=== PATIENT | female | born 1975 | race Caucasian/White ===

== ENCOUNTER 2016-08-31 12:33 | Emergency (ER) ==
[2016-08-31 13:19] LABS: BASO% 0.8 % (0.0-0.8); EOS# 0.15 X1000 (0.0-0.7); EOS% 2.3 % (0.0-10.0); HEMATOCRIT 28.3 % (37.0-47.0); LYMPH# 1.96 X1000 (1.2-3.4); LYMPH% 29.6 % (20.5-51.1); MANUAL DIFF NEEDED? YES; MCH 19.2 PG (27-31); MCHC 28.3 g/dL (33-37); MCV 67.9 FL (81-99); MONO% 10.6 % (1.7-9.3); MPV 8.9 FL (7.4-10.4); NEUT% 56.7 % (42.2-75.2); PLT 468 X1000 (130-400); RBC 4.17 XMIL (4.2-5.4)
[2016-08-31 13:29] LABS: HYPOCHROM 1+; LYMPHS 36 % (21-51); MONO 2 % (1-9)
[2016-08-31 13:38] LABS: INR 0.95; PROTIME 10.1 Seconds (9.2-11.7); PTT 23.5 Seconds (22.0-36.0)
[2016-08-31 14:11] LABS: AGAP 13; ALBUMIN 4.2 g/dL (3.5-5.0); ALKALINE PHOSPHATASE 89 U/L (32-104); BUN 10 mg/dL (8-22); CALCIUM 9.2 mg/dL (8.8-10.2); CHLORIDE 101 mmol/L (98-107); COSMO 273; GOT 27 U/L (10-30); GPT 35 U/L (10-36); POTASSIUM 4.3 mmol/L (3.5-5.1); SODIUM 137 mmol/L (136-145); TCO2 23 mmol/L (25-35); TOTAL BILIRUBIN 0.55 mg/dL (0.20-1.00)
--- NOTE | 2016-08-31 14:48 | PROVIDER DOCUMENTATION ---
HPI-General Adult - General Source: patient - History of Present Illness -Gen Adult Nature of Presenting Problems: patient is a 41 y/o F that presents to the ER from health department due to low H&H. patient reports having some palpitations and dizziness of late but no rectal bleeding or vaginal bleeding. No fever/chills, weight loss. patient has history of anemia in past with transfusion. Location of Pain/Injury: reports: none Pain Radiation: reports: no radiation Quality of Pain: reports: none Severity: reports: mild Onset/Duration: reports: unsure Timing: reports: still present Context/Activities at Onset: reports: none Modifying Factors: improves with: nothing Associated Symptoms: reports: dizziness. denies: back/neck pain, chest pain, fever/chills, genitourinary problems, malaise, muscle aches, shortness of breath , syncope, vomiting Similar Symptoms Previously?: No Recently seen or treated by another doctor?: No <Declan Roberto - Last Filed: 08/31/16 14:54> <Jaiden Ham - Last Filed: 08/31/16 17:06> - General Chief Complaint: Abnormal Lab[s] Stated Complaint: ab. labs Time Seen by Provider: 08/31/16 14:46 Allergies/Adverse Reactions: Patient Allergies Allergy/AdvReac Type Severity Reaction Status Date / Time promethazine HCl * Allergy Intermediate NAUSEA/VOMI Verified 08/31/16 12:43 [From Phenergan] TING tetracycline [Tetracycline] Allergy Intermediate HIVES Verified 08/31/16 12:43 Corticosteroids Allergy Unknown Unknown Verified 08/31/16 12:43 (Glucocorticoids) aspirin AdvReac Intermediate Unknown Verified 08/31/16 12:43 Home Medications: Home Medication List Medication Instructions Recorded Confirmed Last Taken Type No Home Medications 08/31/16 08/31/16 Unknown History Review of Systems - Adult - REVIEW OF SYSTEMS - ADULT Constitutional: denies: chills, fever, fatique, night sweats, weight gain, weight loss Eyes: denies: decreased vision, blurred vision, double vision Ears, Nose, Mouth & Throat: denies: ear pain, sinus problem, throat pain, throat swelling Cardiovascular: reports: chest pain, palpitations. denies: orthopnea, syncope Respiratory: denies: cough, shortness of breath, wheezing Gastrointestinal: denies: abdominal pain, hematemesis, diarrhea, nausea, rectal bleeding, vomiting Genitourinary: denies: dysuria, frequency, hematuria, urgency Musculoskeletal: denies: back pain, joint pain, muscle aches, neck pain Integumentary: denies: hives, itching, skin sores/ulcer Neurological: reports: dizziness/vertigo. denies: headache/migraines, seizure Psychiatric: reports: no symptoms reported Endocrine: reports: no symptoms reported Hematologic/Lymphatic: reports: no symptoms reported Allergic/Immunologic: reports: no symptoms reported All Other Systems: Reviewed and Negative <Declan Roberto - Last Filed: 08/31/16 14:54> Past History - Adult - PAST MEDICAL HISTORY-ADULT Review of Records: reports: Old Records Reviewed, Nursing Assessment Review, Medications Reviewed Gastrointestinal: reports: ulcer Neurological: reports: other (Kiaris) Endocrine/Immune: reports: anemia, thyroid disorder (hypo) - PRIOR SURGERIES/PROCEDURES Surgical/Procedure History: reports: gastric bypass - IMMUNIZATION STATUS Childhood Immunizations: See Nurse Assessment Flu Vaccine: See Nurse Assessment - FAMILY HISTORY Family History: reviewed, not pertinent - SOCIAL HISTORY Smoking: non-smoker Living Situation: family <Declan Roberto - Last Filed: 08/31/16 14:54> Physical Exam-General - PHYSICAL EXAM-ADULT Initial Vital Signs Reviewed: Yes - CONSTITUTIONAL General Appearance: alert, no apparent distress - EYES Eyes: PERRL/EOMI, pink conjunctivae - HEAD, EARS, NOSE, MOUTH & THROAT HENMT: normocephalic/atraumatic, moist mucous membranes, normal ENT inspection - NECK Neck: full range of motion, normal inspection. negative: lymphadenopathy - RESPIRATORY Respiratory: lungs clear, normal breath sounds, no respiratory distress, no accessory muscle use - CARDIOVASCULAR Cardiovascular: regular rate, rhythm, no edema, no murmur - GASTROINTESTINAL (ABDOMEN) Abdominal Exam: normal bowel sounds, non tender, soft, no organomegaly, no pulsatile mass - GENITOURINARY Rectal Exam: normal exam, normal rectal tone Hemoccult Exam: heme negative stool - MUSCULOSKELETAL Back Exam: no CVA tenderness, no vertebral tenderness Extremity: normal range of motion, normal inspection, no pedal edema, no calf tenderness - SKIN Integumentary: normal color, normal turgor, warm/dry. negative: pallor - NEUROLOGIC Neurologic: grossly normal, no motor/sensory deficits - PSYCHIATRIC Psych/Mental Status: normal mood/affect, normal thought content, normal thought process, oriented x 3 <Declan Roberto - Last Filed: 08/31/16 14:54> Progress - PLAN OF CARE/RESULTS Progress/Plan/Lab Results: plan of care-labs, type and screen, transfuse - EKG 1 Time of EKG reading by physician:: 14:56 EKG Read and Signed by:: Jaiden Ham EKG Interpretation (*Must complete 3 of following elements*): Normal Rate: 68 Rhythm: NSR [place]: normal QRS: normal [place] Interval: normal ST Wave: normal <Declan Roberto - Last Filed: 08/31/16 14:54> - PLAN OF CARE/RESULTS Progress/Plan/Lab Results: Laboratory Tests 08/31/16 08/31/16 08/31/16 12:44 12:44 12:44 WBC 6.63 RBC 4.17 L Hgb 8.0 L Hct 28.3 L MCV 67.9 L MCH 19.2 L MCHC 28.3 L RDW Std Deviation 18.7 H Plt Count 468 H MPV 8.9 Immature Gran % (Auto) 0.0 Neut % (Auto) 56.7 Lymph % (Auto) 29.6 Day % (Auto) 10.6 H Eos % (Auto) 2.3 Baso % (Auto) 0.8 Immature Gran # (Auto) 0.00 Neut # (Auto) 3.77 Lymph # (Auto) 1.96 Day # (Auto) 0.70 H Eos # (Auto) 0.15 Baso # (Auto) 0.05 Segmented Neutrophils 62 Lymphocytes 36 Monocytes 2 Hypochromia 1+ Microcytosis 1+ PT 10.1 INR 0.95 PTT (Actin FS) 23.5 Sodium 137 Potassium 4.3 Chloride 101 Carbon Dioxide 23 L Anion Gap 13 BUN 10 Creatinine 0.6 Estimated GFR/1.73 m2 > 60 BUN/Creatinine Ratio 17 Glucose 94 Calculated Osmolality 273 Calcium 9.2 Total Bilirubin 0.55 AST 27 ALT 35 Alkaline Phosphatase 89 Troponin T Total Protein 7.0 Albumin 4.2 Globulin 2.8 Albumin/Globulin Ratio 1.5 Blood Type Antibody Screen Crossmatch 08/31/16 08/31/16 12:44 12:44 WBC RBC Hgb Hct MCV MCH MCHC RDW Std Deviation Plt Count MPV Immature Gran % (Auto) Neut % (Auto) Lymph % (Auto) Day % (Auto) Eos % (Auto) Baso % (Auto) Immature Gran # (Auto) Neut # (Auto) Lymph # (Auto) Day # (Auto) Eos # (Auto) Baso # (Auto) Segmented Neutrophils Lymphocytes Monocytes Hypochromia Microcytosis PT INR PTT (Actin FS) Sodium Potassium Chloride Carbon Dioxide Anion Gap BUN Creatinine Estimated GFR/1.73 m2 BUN/Creatinine Ratio Glucose Calculated Osmolality Calcium Total Bilirubin AST ALT Alkaline Phosphatase Troponin T < 0.010 Total Protein Albumin Globulin Albumin/Globulin Ratio Blood Type O POSITIVE Antibody Screen NEGATIVE Crossmatch See Detail Orders Category Date Time Status Transfuse .Give-Transfuse Care 08/31/16 15:04 Active CHEST-PORTABLE [RAD] Stat Exams 08/31/16 15:42 Taken CBC WITH DIFF [HEME] Stat Lab 08/31/16 12:44 Completed COMPREHENSIVE METABOLIC PANEL [CHEM] Stat Lab 08/31/16 12:44 Completed H&H [HGB AND HCT] [HEME] Stat Lab 08/31/16 17:01 Uncollected LRPC (RED CELLS) [BBK] Stat Lab 08/31/16 12:44 Completed OCCULT BLOOD SCREENING [STOOL] Stat Lab 08/31/16 14:51 Completed PROTIME WITH INR [COAG] Stat Lab 08/31/16 12:44 Completed PTT [COAG] Stat Lab 08/31/16 12:44 Completed TROPONIN T Stat Lab 08/31/16 12:44 Completed TYPE & SCREEN [BBK] Stat Lab 08/31/16 12:44 Completed 0.9% Sodium Chloride Inj [Ns] 500 ml Med 08/31/16 16:30 Discontinued .ROUTE As Directed EKG [EKG] Stat Ther 08/31/16 14:50 Ordered Vital Signs Temp Pulse Resp BP Pulse Ox 08/31/16 16:47 98.9 F 72 18 106/78 100 08/31/16 16:02 71 20 111/78 100 08/31/16 14:58 98.7 F 83 18 123/56 100 08/31/16 12:38 98.5 F 95 H 16 128/70 100 promethazine HCl * [From Phenergan] Allergy (Intermediate, Verified 08/31/16 12: 43) NAUSEA/VOMITING tetracycline [Tetracycline] Allergy (Intermediate, Verified 08/31/16 12:43) HIVES Corticosteroids (Glucocorticoids) Allergy (Unknown, Verified 08/31/16 12:43) Unknown STEROIDS hallucinations aspirin Adverse Reaction (Intermediate, Verified 08/31/16 12:43) Unknown bleeding ulcer No Home Medications 08/31/16 I&O 08/30/16 08/31/16 09/01/16 07:59 07:59 07:59 Intake Total 0 Balance 0 Laboratory 08/31/16 08/31/16 08/31/16 12:44 12:44 12:44 WBC RBC Hgb Hct MCV MCH MCHC RDW Std Deviation Plt Count MPV Immature Gran % (Auto) Neut % (Auto) Lymph % (Auto) Day % (Auto) Eos % (Auto) Baso % (Auto) Immature Gran # (Auto) Neut # (Auto) Lymph # (Auto) Day # (Auto) Eos # (Auto) Baso # (Auto) Segmented Neutrophils Lymphocytes Monocytes Hypochromia Microcytosis PT 10.1 INR 0.95 PTT (Actin FS) 23.5 Sodium Potassium Chloride Carbon Dioxide Anion Gap BUN Creatinine Estimated GFR/1.73 m2 BUN/Creatinine Ratio Glucose Calculated Osmolality Calcium Total Bilirubin AST ALT Alkaline Phosphatase Troponin T < 0.010 Total Protein Albumin Globulin Albumin/Globulin Ratio Blood Type O POSITIVE Antibody Screen NEGATIVE Crossmatch See Detail 08/31/16 08/31/16 12:44 12:44 WBC 6.63 RBC 4.17 L Hgb 8.0 L Hct 28.3 L MCV 67.9 L MCH 19.2 L MCHC 28.3 L RDW Std Deviation 18.7 H Plt Count 468 H MPV 8.9 Immature Gran % (Auto) 0.0 Neut % (Auto) 56.7 Lymph % (Auto) 29.6 Day % (Auto) 10.6 H Eos % (Auto) 2.3 Baso % (Auto) 0.8 Immature Gran # (Auto) 0.00 Neut # (Auto) 3.77 Lymph # (Auto) 1.96 Day # (Auto) 0.70 H Eos # (Auto) 0.15 Baso # (Auto) 0.05 Segmented Neutrophils 62 Lymphocytes 36 Monocytes 2 Hypochromia 1+ Microcytosis 1+ PT INR PTT (Actin FS) Sodium 137 Potassium 4.3 Chloride 101 Carbon Dioxide 23 L Anion Gap 13 BUN 10 Creatinine 0.6 Estimated GFR/1.73 m2 > 60 BUN/Creatinine Ratio 17 Glucose 94 Calculated Osmolality 273 Calcium 9.2 Total Bilirubin 0.55 AST 27 ALT 35 Alkaline Phosphatase 89 Troponin T Total Protein 7.0 Albumin 4.2 Globulin 2.8 Albumin/Globulin Ratio 1.5 Blood Type Antibody Screen Crossmatch - XRAY 1 XRAY Study: Chest Impression: Normal, See EMR Report <Jaiden Ham - Last Filed: 08/31/16 17:06> Departure <Declan Roberto - Last Filed: 08/31/16 14:54> - Departure Time of Disposition Order: 17:02 Certified Medical Emergency: Emergent - Critical Care Note Comments: A 41 y/F with PMH Of PUD and gastric surgery many years ago was sent in for low hemoglobin, complained of fatigue Hb was 8 borderline for transfusion, as pt is getting fatigued and has no appt in next few days especially over weekend will transfuse 1 unit and strict follow up with PCP and needs to see GI for further evalaution, discussed red flags <Jaiden Ham - Last Filed: 08/31/16 17:06> - Departure DIAGNOSIS: Anemia Qualifiers: Anemia type: unspecified type Qualified Code(s): D64.9 - Anemia, unspecified Disposition: HOME 01 Condition: Good Attestation - Scribe Verification/Attestation Scribe:: Declan Roberto Acting as Scribe for:: Jaiden Ham Scribe documention review:: This chart was documented by a scribe and accurately reflects the service the provider performed and the decisions made by the provider. <Declan Roberto - Last Filed: 08/31/16 14:54> Physician Attestation - Physician Attestation I, the provider, attest to the following statement:: Jaiden Ham Physician documentation Attestation:: This documentation recorded by the scribe accurately reflects the service I personally performed and the decisions made by me. <Declan Roberto - Last Filed: 08/31/16 14:54>
[2016-08-31] MEDS ORDERED: NS 500 ML ONE (16:30)
--- NOTE | 2016-08-31 17:12 | Diag Imaging Result Document ---
PROCEDURE NAME: CHEST-PORTABLE - 08/31/2016 AP PORTABLE CHEST AT 1600 HOURS: FINDINGS: There is no evidence of acute cardiac or pulmonary disease. Compared to 08/31/2012, considering differences in projection and inspiration, there has been no significant change. IMPRESSION: No acute disease.
[2016-08-31 18:00] VITALS: BP 111/68
[2016-08-31 18:08] LABS: HEMATOCRIT 28.4 % (37.0-47.0); HEMOGLOBIN 8.2 g/dL (12.0-16.0)
--- NOTE | 2016-09-01 05:56 | EKG Report ---
Test Performed on : 08/31/2016 2:56:59 PM Test Reason : low Hb Blood Pressure : / mmHG Vent. Rate : 068 BPM Atrial Rate : 068 BPM P-R Int : 138 ms QRS Dur : 084 ms QT Int : 388 ms P-R-T Axes : 040 042 056 degrees QTc Int : 412 ms Normal sinus rhythm. Normal ECG No previous ECGs available Unconfirmed Result
== END 2016-08-31 18:25 | disposition home or self-care (01) ==
LOC: ED 12:33
DX: D64.9 Anemia, unspecified (principal); R00.2 Palpitations; R42 Dizziness and giddiness; R79.89 Other specified abnormal findings of blood chemistry; R53.83 Other fatigue; Z98.84 Bariatric surgery status
CPT/HCPCS: 71010; 80053; 82270; 84484; 85014; 85018; 85025; 85610; 85730; 86850; 86900; 86901; 86920; 93005; J7040; P9016

== ENCOUNTER 2016-09-02 14:07 | Emergency (ER) ==
--- NOTE | 2016-09-02 14:32 | PROVIDER DOCUMENTATION ---
HPI-Abdominal Pain/GI Problem - General Chief Complaint: Back Pain Stated Complaint: BACK PAIN Time Seen by Provider: 09/02/16 14:17 Source: patient Allergies/Adverse Reactions: Patient Allergies Allergy/AdvReac Type Severity Reaction Status Date / Time promethazine HCl * Allergy Intermediate NAUSEA/VOMI Verified 09/02/16 14:18 [From Phenergan] TING tetracycline [Tetracycline] Allergy Intermediate HIVES Verified 09/02/16 14:18 Corticosteroids Allergy Unknown Unknown Verified 09/02/16 14:18 (Glucocorticoids) aspirin AdvReac Intermediate Unknown Verified 09/02/16 14:18 Home Medications: Home Medication List Medication Instructions Recorded Confirmed Last Taken Type Bisacodyl [Dulcolax] 10 mg TX QHS #20 supp 09/02/16 Unknown Rx Cyclobenzaprine [Flexeril] 10 mg PO TID #20 tablet 09/02/16 Unknown Rx Polyethylene Glycol 3350 [Miralax] 1 cap PO DAILY #1 powder 09/02/16 Unknown Rx - History of Present Illness-ABD Nature of Presenting Problems: Pt is a 41 y/o F c chief complaint epigastric abdominal pain and mid back pain x 3 days. Pt states she has a h/o ulcers. Pt denies any dysuria, hematuria, dark stool, nausea, vomiting. On arrival, pt is in minimal distress. Pt is in a drug treatment program and requests no narcotic medications. Review of Systems - Adult - REVIEW OF SYSTEMS - ADULT Constitutional: reports: no symptoms reported. denies: chills, fatique Eyes: reports: no symptoms reported. denies: blurred vision, double vision Ears, Nose, Mouth & Throat: reports: no symptoms reported. denies: ear pain, nose pain, throat pain Cardiovascular: reports: no symptoms reported. denies: chest pain, orthopnea Respiratory: reports: no symptoms reported. denies: cough, shortness of breath , wheezing Gastrointestinal: reports: no symptoms reported. denies: abdominal pain, nausea Genitourinary: reports: no symptoms reported. denies: dysuria, hematuria Musculoskeletal: reports: no symptoms reported. denies: bone pain, joint pain, joint swelling Integumentary: reports: no symptoms reported. denies: itching, rash Neurological: reports: no symptoms reported. denies: numbness, paresthesia Psychiatric: reports: no symptoms reported. denies: anxiety, emotional problems Endocrine: reports: no symptoms reported. denies: cold intolerance, heat intolerance Hematologic/Lymphatic: reports: no symptoms reported. denies: blood clots, low blood count Allergic/Immunologic: reports: no symptoms reported. denies: allergic reactions , food allergy All Other Systems: Reviewed and Negative Past History - Adult - PAST MEDICAL HISTORY-ADULT Review of Records: reports: Old Records Reviewed, Nursing Assessment Review, Medications Reviewed, Social history reviewed & non-contributory. Major Childhood Illnesses: reports: denies history Cardiovascular: reports: denies history Respiratory: reports: denies history Gastrointestinal: reports: ulcer Obstetrical/Gynecological: reports: denies history Genitourinary: reports: denies history Musculoskeletal: reports: denies history Neurological: reports: other (Kiaris) Endocrine/Immune: reports: anemia, thyroid disorder (hypo) Other Conditions: reports: denies history - PRIOR SURGERIES/PROCEDURES Surgical/Procedure History: reports: gastric bypass - IMMUNIZATION STATUS Childhood Immunizations: See Nurse Assessment Flu Vaccine: See Nurse Assessment - FAMILY HISTORY Family History: reviewed, not pertinent - SOCIAL HISTORY Smoking: cigarettes Provider spent 3-5 mins advising pt. on dangers of tobacco.: Discussed manners to quit use, and f/u contacts for add'l counseling. Substance Use: none presently/history of abuse Alcohol Use Frequency: sober (former use) Living Situation: family Physical Exam-General - PHYSICAL EXAM-ADULT Initial Vital Signs Reviewed: Yes - CONSTITUTIONAL General Appearance: appears well, alert, no apparent distress - EYES Eyes: PERRL/EOMI, pink conjunctivae - HEAD, EARS, NOSE, MOUTH & THROAT HENMT: normocephalic/atraumatic, moist mucous membranes, normal ENT inspection - NECK Neck: non-tender - RESPIRATORY Respiratory: chest non-tender, lungs clear, normal breath sounds - CARDIOVASCULAR Cardiovascular: normal peripheral pulses - CHEST (BREASTS) Chest/Breast: deferred - GASTROINTESTINAL (ABDOMEN) Abdominal Exam: normal bowel sounds, soft, tenderness (eipgastric). negative: mass, Huang's sign, obturator sign, psoas, Rovsing's sign - MUSCULOSKELETAL Back Exam: muscle spasm (upper lumbar) - SKIN Integumentary: normal color, normal turgor, warm/dry - NEUROLOGIC Neurologic: grossly normal, no motor/sensory deficits - PSYCHIATRIC Psych/Mental Status: normal mood/affect, normal thought content, normal thought process, oriented x 3 Progress - PLAN OF CARE/RESULTS Progress/Plan/Lab Results: Orders Category Date Time Status Saline Loc NOW Care 09/02/16 14:[address] ABD/PELVIS W/ IV CONT ONLY [CT] Stat Exams 09/02/16 14:39 Taken CBC WITH ELECTRONIC DIFF [HEME] Stat Lab 09/02/16 14:54 Completed COMPREHENSIVE METABOLIC PANEL [CHEM] Stat Lab 09/02/16 14:54 Completed FERRITIN Stat Lab 09/02/16 14:54 Completed FOLATE Stat Lab 09/02/16 14:54 Completed TEST-SERUM [PREG] Stat Lab 09/02/16 14:54 Completed UA Reflex [URINALYSIS W/POSS RFLX CULT] [URINALYSIS] Lab 09/02/16 14:52 Completed Stat UIBC W TOTAL IRON [CHEM] Stat Lab 09/02/16 14:54 Completed VITAMIN B12 Routine Lab 09/03/16 06:00 Ordered Acetaminophen [Tylenol] Med 09/02/16 16:45 Discontinued 650 mg PO NOW ONE Cyclobenzaprine [Flexeril] Med 09/02/16 16:45 Discontinued 10 mg PO NOW ONE Laboratory Tests 09/02/16 09/02/16 09/02/16 14:52 14:54 14:54 WBC RBC Hgb Hct MCV MCH MCHC RDW Std Deviation Plt Count MPV Immature Gran % (Auto) Neut % (Auto) Lymph % (Auto) [place] % (Auto) Eos % (Auto) Baso % (Auto) Immature Gran # (Auto) Neut # (Auto) Lymph # (Auto) [place] # (Auto) Eos # (Auto) Baso # (Auto) Segmented Neutrophils Band Neutrophils Lymphocytes Monocytes Eosinophils Atypical Lymphocytes Hypochromia Large Platelets Polychromasia Poikilocytosis Anisocytosis Microcytosis Spherocytes Target Cells Ovalocytes Sodium Potassium Chloride Carbon Dioxide Anion Gap BUN Creatinine Estimated GFR/1.73 m2 BUN/Creatinine Ratio Glucose Calculated Osmolality Calcium Iron 15 L TIBC 571 % Saturation 3 Unsat Iron Binding 556 H Ferritin 4 L Total Bilirubin AST ALT Alkaline Phosphatase Total Protein Albumin Globulin Albumin/Globulin Ratio Folate Serum , Qual Urine Source CLEAN CATCH Urine Color YELLOW Urine Turbidity CLEAR Urine pH 6.0 Ur Specific [place] 1.011 Urine Protein NEGATIVE Ur Glucose (Stick) NEGATIVE Ur Ketones (Stick) NEGATIVE Urine Blood NEGATIVE Urine Nitrite NEGATIVE Urine Bilirubin NEGATIVE Urobilinogen Dipstick NORMAL Urine Leukocytes NEGATIVE Urine WBC (Auto) <10 Urine RBC (Auto) <10 U Epithel Cells (Auto) <10 Urine Bacteria (Auto) NEGATIVE 09/02/16 09/02/16 09/02/16 14:54 14:54 14:54 WBC 8.81 RBC 4.64 Hgb 9.3 L Hct 32.0 L MCV 69.0 L MCH 20.0 L MCHC 29.1 L RDW Std Deviation 20.6 H Plt Count 482 H MPV 8.9 Immature Gran % (Auto) 0.0 Neut % (Auto) 58.5 Lymph % (Auto) 27.9 [place] % (Auto) 10.8 H Eos % (Auto) 2.3 Baso % (Auto) 0.5 Immature Gran # (Auto) 0.00 Neut # (Auto) 5.16 Lymph # (Auto) 2.46 [place] # (Auto) 0.95 H Eos # (Auto) 0.20 Baso # (Auto) 0.04 Segmented Neutrophils 54 Band Neutrophils 2 H Lymphocytes 30 Monocytes 6 Eosinophils 4 Atypical Lymphocytes 4.0 Hypochromia 2+ Large Platelets OCCASIONAL Polychromasia OCCASIONAL Poikilocytosis 1+ Anisocytosis 2+ Microcytosis 3+ Spherocytes OCCASIONAL Target Cells 1+ Ovalocytes OCCASIONAL Sodium Potassium Chloride Carbon Dioxide Anion Gap BUN Creatinine Estimated GFR/1.73 m2 BUN/Creatinine Ratio Glucose Calculated Osmolality Calcium Iron TIBC % Saturation Unsat Iron Binding Ferritin Total Bilirubin AST ALT Alkaline Phosphatase Total Protein Albumin Globulin Albumin/Globulin Ratio Folate 10.1 Serum , Qual NEGATIVE Urine Source Urine Color Urine Turbidity Urine pH Ur Specific [place] Urine Protein Ur Glucose (Stick) Ur Ketones (Stick) Urine Blood Urine Nitrite Urine Bilirubin Urobilinogen Dipstick Urine Leukocytes Urine WBC (Auto) Urine RBC (Auto) U Epithel Cells (Auto) Urine Bacteria (Auto) 09/02/16 14:54 WBC RBC Hgb Hct MCV MCH MCHC RDW Std Deviation Plt Count MPV Immature Gran % (Auto) Neut % (Auto) Lymph % (Auto) [place] % (Auto) Eos % (Auto) Baso % (Auto) Immature Gran # (Auto) Neut # (Auto) Lymph # (Auto) [place] # (Auto) Eos # (Auto) Baso # (Auto) Segmented Neutrophils Band Neutrophils Lymphocytes Monocytes Eosinophils Atypical Lymphocytes Hypochromia Large Platelets Polychromasia Poikilocytosis Anisocytosis Microcytosis Spherocytes Target Cells Ovalocytes Sodium 133 L Potassium 3.6 Chloride 98 Carbon Dioxide 23 L Anion Gap 12 BUN 11 Creatinine 0.8 Estimated GFR/1.73 m2 > 60 BUN/Creatinine Ratio 14 Glucose 91 Calculated Osmolality 265 Calcium 8.9 Iron TIBC % Saturation Unsat Iron Binding Ferritin Total Bilirubin 0.51 AST 29 ALT 38 H Alkaline Phosphatase 85 Total Protein 6.7 Albumin 4.1 Globulin 2.6 Albumin/Globulin Ratio 1.6 Folate Serum , Qual Urine Source Urine Color Urine Turbidity Urine pH Ur Specific [place] Urine Protein Ur Glucose (Stick) Ur Ketones (Stick) Urine Blood Urine Nitrite Urine Bilirubin Urobilinogen Dipstick Urine Leukocytes Urine WBC (Auto) Urine RBC (Auto) U Epithel Cells (Auto) Urine Bacteria (Auto) Vital Signs - 24 hr 09/02/16 14:08 Temperature 97.8 F Pulse Rate 97 H Respiratory 18 Rate Blood Pressure 144/68 O2 Sat by Pulse 100 Oximetry - CT/MRI 1 CT Study: Abdomen, Pelvis Impression: Normal (No bowel obstruction, unremarkable appendix, constipation, no hydronephrosis - radiology) Departure - Departure Time of Disposition Order: 16:47 DIAGNOSIS: Back pain Qualifiers: Back pain location: low back pain Chronicity: acute Back pain laterality: midline Sciatica presence: without sciatica Qualified Code(s): M54.5 - Low back pain Abdominal pain Qualifiers: Abdominal location: epigastric Qualified Code(s): R10.13 - Epigastric pain Constipation Qualifiers: Constipation type: unspecified constipation type Qualified Code(s): K59.00 - Constipation, unspecified Disposition: HOME 01 Certified Medical Emergency: Emergent Condition: Stable Additional Instructions: ED Follow Up Instructions: You have been treated by a care provider in the Emergency Department. These instructions are being provided to you so you can have an understanding of how to care for yourself upon discharge. Upon discharge from the Emergency Department, you are responsible for making arrangements for follow-up care by a physician of your choice. Take all prescribed medications as directed. Return to the Emergency Department immediately for any new or worsening symptoms. You may call the Physician Referral phone number at [phone] to obtain a list of Physicians who are taking new patients. Prescriptions: Bisacodyl [Dulcolax] 10 mg TX QHS #20 supp Cyclobenzaprine [Flexeril] 10 mg PO TID #20 tablet Polyethylene Glycol 3350 [Miralax] 1 cap PO DAILY #1 powder Referrals: Steven Price MD [STAFF PHYSICIAN] - Attestation - Physician/ CAL[place] Attestation Patient care was provided by Advanced Practice Provider:: Yes Advanced Practice Provider:: Zhao Villa Advanced Practice Provider documentation review:: The Mid-level provider documentation, treatment plan and medical decision making was reviewed by the physician who agrees with all treatment and medical decision making by the MLP.
[2016-09-02 14:53] LABS: URINE CULTURE NEEDED? NO; URINE MICRO REVIEW NEEDED? NO; URINE SOURCE CLEAN CATCH
[2016-09-02 15:09] LABS: BILIRUBIN URINE NEGATIVE (NEGATIVE); BLOOD URINE NEGATIVE (NEGATIVE); COLOR YELLOW; GLUCOSE URINE NEGATIVE (NEGATIVE); LEUKOCYTES URINE NEGATIVE (NEGATIVE); NITRITE URINE NEGATIVE (NEGATIVE); PROTEIN URINE NEGATIVE (NEGATIVE); SP GRAVITY URINE 1.011; TURBIDITY URINE CLEAR (CLEAR); UROBILINOGEN URINE NORMAL (NORMAL)
[2016-09-02 15:10] LABS: UR EPITHELIAL CELLS <10 /HPF (<10); URINE BACTERIA NEGATIVE /HPF; URINE RBC <10 /HPF (<10); URINE WBC <10 /HPF (<10)
[2016-09-02 15:26] LABS: BASO% 0.5 % (0.0-0.8); EOS% 2.3 % (0.0-10.0); HEMOGLOBIN 9.3 g/dL (12.0-16.0); LYMPH# 2.46 X1000 (1.2-3.4); LYMPH% 27.9 % (20.5-51.1); MANUAL DIFF NEEDED? YES; MCHC 29.1 g/dL (33-37); MONO# 0.95 X1000 (0.11-0.59); MONO% 10.8 % (1.7-9.3); MPV 8.9 FL (7.4-10.4); NEUT% 58.5 % (42.2-75.2); PLT 482 X1000 (130-400); RBC 4.64 XMIL (4.2-5.4)
[2016-09-02 15:46] LABS: IRON SATURATION 3 %; TIBC 571 ug/dL; TOTAL IRON 15 ug/dL (49-151); UNBOUND IRON 556 ug/dL (112-346)
[2016-09-02 15:47] LABS: AGAP 12; ALBUMIN 4.1 g/dL (3.5-5.0); ALKALINE PHOSPHATASE 85 U/L (32-104); BUN 11 mg/dL (8-22); CALCIUM 8.9 mg/dL (8.8-10.2); CHLORIDE 98 mmol/L (98-107); COSMO 265; GOT 29 U/L (10-30); GPT 38 U/L (10-36); POTASSIUM 3.6 mmol/L (3.5-5.1); SODIUM 133 mmol/L (136-145); TCO2 23 mmol/L (25-35); TOTAL BILIRUBIN 0.51 mg/dL (0.20-1.00); TOTAL PROTEIN 6.7 g/dL (6.3-8.3)
[2016-09-02 16:09] LABS: BANDS 2 % (0-1); EOS 4 % (1-10); LYMPHS 30 % (21-51); MONO 6 % (1-9)
[2016-09-02 16:10] LABS: HYPOCHROM 2+; POLYCHROM OCCASIONAL
[2016-09-02 16:11] LABS: LARGE PLATELETS OCCASIONAL; TARGET CELLS 1+
[2016-09-02] MEDS ORDERED: FLEXERIL PO ONE (16:45)
[2016-09-02] MEDS ORDERED: TYLENOL PO ONE (16:45)
[2016-09-02 17:04] VITALS: BP 122/79
--- NOTE | 2016-09-02 17:07 | Diag Imaging Result Document ---
PROCEDURE NAME: CT ABD/PELVIS W/ IV CONT ONLY - 09/02/2016 CT ABDOMEN AND PELVIS WITH IV CONTRAST: FINDINGS: Exam performed with intravenous contrast only per request of the referring provider. A dose reduction protocol was used. No comparison exam. The visualized lung bases appear essentially clear. There are no substantial abnormalities of the liver, spleen, adrenal glands, or pancreas identified. There are no calcified gallstones or pericholecystic inflammation identified. The bilateral kidneys enhance homogeneously. There is no hydronephrosis. There are no substantially enlarged lymph nodes identified. There are no substantially enlarged lymph nodes. There is no abdominal aortic aneurysm seen. There are postsurgical changes of gastric bypass. There is no evidence of bowel obstruction. The appendix is unremarkable. There is no substantial bowel wall thickening identified. There is a moderate amount of retained fecal debris in the colon. There is no abscess identified. There is no free air. Images of pelvis show minimal free fluid in the posterior pelvis. There is no discrete pelvic mass identified. IMPRESSION: 1. Postsurgical changes of gastric bypass. No bowel obstruction. Unremarkable appendix. 2. Apparent constipation. No abscess. No free air. 3. Nonspecific minimal free fluid in posterior pelvis.
== END 2016-09-02 17:04 | disposition home or self-care (01) ==
LOC: ED 14:07
DX: K59.00 Constipation, unspecified (principal); M54.5 Low back pain; R10.13 Epigastric pain; M54.6 Pain in thoracic spine; R10.816 Epigastric abdominal tenderness; M62.830 Muscle spasm of back; F17.210 Nicotine dependence, cigarettes, uncomplicated; Z71.6 Tobacco abuse counseling; Z98.84 Bariatric surgery status
CPT/HCPCS: 74177; 80053; 81001; 82728; 82746; 83540; 83550; 84703; 85025; Q9967